=== PATIENT | female | born 1970 | race Caucasian/White ===

== ENCOUNTER 2021-01-30 15:22 | Emergency (ER) | payer SELFPAY ==
[~2021-01-30] VITALS: Ht 162.6 cm; Wt 87.0 kg
[2021-01-30 16:26] VITALS: BP 165/94
== END 2021-01-30 16:49 | disposition home or self-care (01) ==
LOC: ER 15:22
DX: S06.0X0A Concussion without loss of consciousness, initial encounter (principal); M25.532 Pain in left wrist; Z88.0 Allergy status to penicillin; Z88.6 Allergy status to analgesic agent; Z88.1 Allergy status to other antibiotic agents; W18.09XA Striking against other object with subsequent fall, initial encounter; Y93.89 Activity, other specified; Y92.89 Other specified places as the place of occurrence of the external cause; Y99.8 Other external cause status
CPT/HCPCS: 99282